=== PATIENT | female | born 1965 | race Caucasian/White ===

== ENCOUNTER → 2016-02-10 | Outpatient (CLI) | payer OTHER ==
--- NOTE | 2016-02-10 11:59 | DIAGNOSTIC IMAGING REPORT ---
CHEST 2 VIEWS ROUTINE CLINICAL HISTORY: COUGH dyspnea COMPARISON STUDY: No previous studies for comparison. FINDINGS: The bones soft tissues and hemidiaphragms are normal. The cardiomediastinal silhouette is normal. The lungs are clear. The pulmonary vasculature is normal. IMPRESSION: Negative chest. Electronically signed by: Pepe Lee M.D. 02/10/2016 11:57 AM
== END | disposition home or self-care (01) ==
LOC: C.RADBC 11:35
PROVIDERS: ATTEND Internal Medicine Geriatric Medicine
DX: R05 Cough (principal); R06.00 Dyspnea, unspecified

== ENCOUNTER → 2016-10-12 | Outpatient (CLI) | payer OTHER ==
[~2016-10-12] MED LIST: GADAVIST IV PRN
--- NOTE | 2016-10-12 16:00 | DIAGNOSTIC IMAGING REPORT ---
MRI OF THE BRAIN COMBO INTERNAL AUDITORY CANAL PROTOCOL CLINICAL HISTORY: Bilateral sensorineural hearing loss, left greater than right. COMPARISON STUDY: No priors. TECHNIQUE: MRI of the brain was performed utilizing various T1 and T2-weighted sequences in the axial, sagittal, and coronal planes. Contrast-enhanced sequences were acquired following the administration of 8 cc of Gadavist. Additional high-resolution imaging through the skull base was performed both pre and postcontrast for further assessment of the internal auditory canals. FINDINGS: Brain parenchyma: The brain parenchyma is normal in appearance. There is no hemorrhage or mass effect. There is no restricted diffusion to suggest acute ischemia. No enhancing mass lesion is identified on the postcontrast images. Knight-white matter differentiation is preserved. No extra-axial fluid collection is seen. The cerebellar tonsils are normal in configuration. Ventricles, sulci, and cisterns: Normal in configuration. Internal auditory canals: There is no enhancing mass lesion identified in the cerebellopontine angle bilaterally. No mass lesion or abnormal enhancement is seen along the course of the internal artery canals bilaterally. The middle ear structures are normal as imaged. Pituitary and sella: Unremarkable. Intracranial vasculature: Normal flow voids are maintained at the skull base. Orbits: The bony orbits are grossly intact. Orbital contents are normal in appearance. Sinuses and mastoids: There are bilateral mastoid effusions, right larger than left. The paranasal sinuses are clear. Calvarium: Unremarkable. Cervical cord: Partially visualized cervical spinal cord is normal in morphology and signal intensity. IMPRESSION: 1. No acute intracranial abnormality. 2. Unremarkable MRI assessment of the internal auditory canals. 3. Mastoid effusions. Electronically signed by: Babak Alvarez M.D. 10/12/2016 3:57 PM Dictated Date/Time: 10/12/2016 3:52 PM
== END | disposition home or self-care (01) ==
LOC: C.MRIBC 14:13
PROVIDERS: ATTEND Physician Assistant
DX: H90.42 Sensorineural hearing loss, unilateral, left ear, with unrestricted hearing on the contralateral side (principal); H74.93 Unspecified disorder of middle ear and mastoid, bilateral